=== PATIENT | female | born 1960 | race Caucasian/White ===

== ENCOUNTER 2017-04-25 17:02 | Emergency (ER) | payer MEDICAID ==
[~2017-04-25] VITALS: Ht 160 cm; Wt 82.6 kg
[2017-04-25] MEDS ORDERED: NKM (17:25)
--- NOTE | 2017-04-25 17:44 | Emergency Room Report ---
History of Present Illness General Chief Complaint: Multiple Trauma/Fall Source: Patient Present Illness HPI Patient is a 57-year-old female who presented after a reported fall in grocery store. The patient stated her left leg went backward as well as her right leg went forward. She reports having pain to her right knee as well as her low back. The patient initially denied any pain. She reported having increased shortness of breath the few hours after fall. She denies any numbness. She had been able to ambulate after the incident. She denies loss of consciousness Allergies: Coded Allergies: No Known Allergies (Unverified , 04/25/17) Patient History Past Medical History: see triage record Last Menstrual Period: na Reviewed Nursing Documentation: PMH: Agreed, PSxH: Agreed Nursing Documentation-PMH Past Medical History: No Stated History Review of Systems All Other Systems: negative except mentioned in HPI Physical Exam Vital Signs Date Time Temp Pulse Resp B/P Pulse Ox O2 Delivery O2 Flow Rate FiO2 04/25/17 17:04 98.1 83 18 94/65 97 Room Air Sp02 EP Interpretation: reviewed, normal General Appearance: normal inspection, well appearing, no apparent distress, alert, GCS 15 Head: atraumatic ENT: normal ENT inspection, hearing grossly normal, normal voice Neck: normal inspection, full range of motion, supple, no bony tend, tender lateral Respiratory: normal inspection, lungs clear, normal breath sounds, no respiratory distress, no retraction, no wheezing Cardiovascular #1: regular rate, rhythm, no edema Gastrointestinal: normal inspection, normal bowel sounds, non tender, soft, no guarding, no hernia Genitourinary: no CVA tenderness Musculoskeletal: normal inspection, back normal, normal range of motion Neurologic: normal inspection, alert, oriented x3, responsive, bulk receiver III-XII nml as tested, motor strength/tone normal, speech normal Psychiatric: normal inspection, judgement/insight normal, mood/affect normal Skin: normal color, no rash, other - soft tissue swelling to right patellar area Medical Decision Making Diagnostic Impression: Primary Impression: Knee contusion Additional Impressions: Lumbar strain Bronchitis Fall ER Course Patient presented after a fall . Differential diagnosis included was not limited to neck fracture, CVA, close head injury, syncopal episode, basilar ischemia. The EKG interpreted by me showed normal sinus rhythm. The patient was given a breathing treatment with improvement. Chest x-ray one view interpreted by me showed normal lung manrique without evident infiltrate normal cardiac size. X-ray of the right knee 3 views interpreted by me showed degenerative changes without fracture. The patient is advised to follow up with primary care doctor in 1-2 days. Patient is advised to return if any worsening condition or if any changes in status that are concerning. Last Vital Signs Date Time Temp Pulse Resp B/P Pulse Ox O2 Delivery O2 Flow Rate FiO2 04/25/17 17:04 98.1 83 18 94/65 97 Room Air Status: improved Disposition: HOME, SELF-CARE Condition: Stable Scripts Cyclobenzaprine Hcl* (FLEXERIL*) 10 Mg Tablet 10 MG ORAL TID Y for Muscle Spasm, #20 TAB Prov: Louie Quiroz 04/25/17 Acetaminophen (Acetaminophen) 500 Mg Tablet 500 MG PO EVERY 6 HOURS, #30 TAB Prov: Louie Quiroz 04/25/17 Louie Quiroz Apr 25, 2017 17:44
[2017-04-25] MEDS ORDERED: DuoNeb 0.5-3(2.5)mg/3ml neb HHN ONE (17:45)
[2017-04-25] MEDS ORDERED: CYCLOBENZAPRINE10 MG ORAL (18:40)
[2017-04-25] MEDS ORDERED: ACETAMINOPHEN500 M5 PO (18:40)
[2017-04-25 18:52] VITALS: BP 98/65
[2017-04-25 19:28] VITALS: BP 98/65
--- NOTE | 2017-04-26 08:50 | Diagnostic Imaging Report ---
Indication: SOB Technique: XRAY CHEST 1 V Comparison: None. Findings: The cardiomediastinal silhouette is normal. The lungs are clear. There is no evidence of pleural fluid. The bones are unremarkable. Impression: Normal chest.
--- NOTE | 2017-04-26 08:50 | Diagnostic Imaging Report ---
Indication: PAIN Technique: XRAY SPINE CERV 4+ VIEWS Comparison: None. Findings: Disc space narrowing is noted at C5-6 with osteophyte formation. Minimal osteophytic spurring is noted at C3-4 and C4-5. Alignment is intact. No fracture. No evidence of bone destruction. Uncovertebral joint spurring is noted on the right at C5-6. Impression: Degenerative spondylosis. Otherwise negative.
--- NOTE | 2017-04-27 16:22 | Cardiology Report ---
APPROVED REPORT EKG Measurement Heart [id number] Normal sinus rhythm Normal ECG
== END 2017-04-25 19:28 | disposition home or self-care (01) ==
LOC: EMR 17:52
DX: S80.01XA Contusion of right knee, initial encounter (principal); S39.012A Strain of muscle, fascia and tendon of lower back, initial encounter; J20.9 Acute bronchitis, unspecified; W19.XXXA Unspecified fall, initial encounter; Y93.9 Activity, unspecified; Y92.512 Supermarket, store or market as the place of occurrence of the external cause
CPT/HCPCS: 71010; 72050; 72110; 93005; 94640; 99284; J7620